=== PATIENT | female | born 1960 | race Native Hawaiian/Other Pacific Islander ===

== ENCOUNTER → 2021-01-05 | Outpatient (CLI) | payer OTHER | LOC: MAMMO 09:00 | PROVIDERS: ATTEND Physical Medicine & Rehabilitation | DX: Z12.31 Encounter for screening mammogram for malignant neoplasm of breast (principal) ==

== ENCOUNTER 2021-05-04 09:10 | Outpatient (CLI) | payer OTHER ==
[2021-05-04 10:45] LABS: PLATELET COUNT 284 K/uL (152-353)
[2021-05-04 11:07] LABS: POTASSIUM 5.5 mmol/L (3.6-5.2)
== END 2021-05-04 18:52 | disposition home or self-care (01) ==
LOC: US 09:10
PROVIDERS: ATTEND Internal Medicine
DX: N18.2 Chronic kidney disease, stage 2 (mild) (principal); E11.22 Type 2 diabetes mellitus with diabetic chronic kidney disease
CPT/HCPCS: 36415; 80053; 81000; 82043; 82306; 82330; 82570; 82607; 82728; 82746; 83036; 83540; 83550; 83735; 83970; 84155; 84439; 84443; 85027; 85652; 86038; 86140

== ENCOUNTER 2022-01-31 15:07 | Outpatient (CLI) | payer OTHER | END 2022-01-31 19:37 | disposition home or self-care (01) | LOC: MAMMO 15:07 | PROVIDERS: ATTEND Physician Assistant | DX: Z12.31 Encounter for screening mammogram for malignant neoplasm of breast (principal) ==